=== PATIENT | female | born 1955 | race African-American/Black ===

== ENCOUNTER 2017-10-16 13:32 | Emergency (ER) | payer OTHER ==
[2017-10-16 13:39] VITALS: BP 156/80; PULSE 85; TEMP 98; BMI 36.6
--- NOTE | 2017-10-16 15:00 | PDOC ---
History of Present Illness - General Chief Complaint: Allergic Reaction Stated Complaint: SWOLLEN FACE Time Seen by Provider: 10/16/17 14:20 History Source: Patient Exam Limitations: No Limitations - History of Present Illness Initial Comments: 10/16/17 15:20 62yo woman with DM and glaucoma who presents with acute unilateral R sided facial swelling. Patient was at [facility] [place] she awoke this morning and noticed that the R side of her face, including her lips were swollen. She denies any associated pruritis, increased lacrimation, rhinorrhea, ear pain/discharge. Her taste is intact. She denies any known food allergies. She had a home cooked meal last night of salmon and chicken. She has not traveled recently. 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 No insect bites. Timing/Duration: 4-6 hours Associated Symptoms: reports: denies symptoms Past History - Travel Traveled outside of the country in the last 30 days: No Close contact w/someone who was outside of country & ill: No - Past Medical History Allergies/Adverse Reactions: Allergies Allergy/AdvReac Type Severity Reaction Status Date / Time Iodinated Contrast- Oral and Allergy Verified 10/16/17 13:34 IV Dye [Iodinated Contrast Media - IV Dye] Home Medications: Ambulatory Orders No Home Medications 0 dose .ROUTE UTDICT 06/30/13 Anemia: No Asthma: No Cancer: No Cardiac Disorders: No CVA: No COPD: No CHF: No Dementia: No Diabetes: Yes (niddm) GI Disorders: No Disorders: No HTN: No Hypercholesterolemia: No Liver Disease: No Seizures: No Thyroid Disease: Yes - Surgical History Abdominal Surgery: Yes (ectopic) Appendectomy: No Cardiac Surgery: No Cholecystectomy: No Lung Surgery: No Neurologic Surgery: No - Immunization History Immunization Up to Date: Yes - Suicide/Smoking/Psychosocial Hx Smoking History: Never smoked Have you smoked in the past 12 months: No Information on smoking cessation initiated: No Hx Alcohol Use: Yes (occasion) Drug/Substance Use Hx: No Substance Use Type: None Hx Substance Use Treatment: No Review of Systems - Review of Systems Able to Perform ROS?: Yes HEENTM: Yes: See HPI All Other Systems: Reviewed and Negative *Physical Exam - Vital Signs Last Vital Signs Temp Pulse Resp BP Pulse Ox 98.0 F 85 18 156/80 100 10/16/17 13:35 10/16/17 13:35 10/16/17 13:35 10/16/17 13:35 10/16/17 13:35 - Physical Exam General Appearance: Yes: Nourished, Appropriately Dressed HEENT: positive: EOMI, JL, Other (R side parotid tenderness) Neck: positive: Supple Respiratory/Chest: positive: Lungs Clear, Normal Breath Sounds Cardiovascular: positive: Regular Rhythm, Regular Rate 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 No focal deficits identified on neurological exam. VS stable with no reports of subjective fever or chills makes an infectious etiology less likely. Will discharge home with close follow- up with ENT to evaluate parotid. Provided patient with education on parotiditis. *DC/Admit/Observation/Transfer - Referrals Referrals: Pepito Ricketts MD [Primary Care Provider] - Jesus Welch MD [Staff Physician] - - Patient Instructions Additional Instructions: Please see Dr. Welch ([phone]) an Ear, Nose, and Throat specialist within 1 week to discuss your symptoms. You parotid gland is swollen. Please see the educational packet provided about this condition. Try sucking on hard sour or lemon-flavored hard candies, which may help alleviate your symptoms. Please return to the Emergency Department if your symptoms worsen, including changes in your vision or increased facial pain. - Post Discharge Activity
--- NOTE | 2017-10-16 16:17 | PDOC ---
Attending Attestation - Resident Resident Name: Noemy Garcia - ED Attending Attestation I have performed the following: I have examined & evaluated the patient, The case was reviewed & discussed with the resident, I agree w/resident's findings & plan, Exceptions are as noted - Medical Decision Making 10/16/17 16:20 62 years old presents with 1 day history of right sided right cheek swelling. No eye year nose or throat pain. On palpation the parotid gland is prominent on that side. Otherwise no acute findings normal neurologic examination Patient will follow-up with ENT in 1-2 days she'll return to emergency department for any severe worsening symptoms or other concerns. Findings, the need for follow-up and strict return instructions discussed with patient.
== END 2017-10-16 16:16 | disposition home or self-care (01) ==
LOC: JER 13:32
DX: K11.20 Sialoadenitis, unspecified (principal)
CPT/HCPCS: 99282-25

== ENCOUNTER 2019-05-28 17:11 | Emergency (ER) | payer OTHER ==
[2019-05-28 17:55] VITALS: BP 155/84; PULSE 69; TEMP 98.6; BMI 36.3
== END 2019-05-28 18:52 | disposition home or self-care (01) ==
LOC: FER 17:11
DX: M75.82 Other shoulder lesions, left shoulder (principal); W18.39XA Other fall on same level, initial encounter; Y93.89 Activity, other specified; Y92.89 Other specified places as the place of occurrence of the external cause; Y99.0 Civilian activity done for income or pay; E11.9 Type 2 diabetes mellitus without complications; E07.9 Disorder of thyroid, unspecified
CPT/HCPCS: 73030-TC-LT-FY; 99283-25

== ENCOUNTER → 2019-10-07 | Day surgery (SDC) | payer OTHER ==
--- NOTE | 2019-10-09 16:42 | PATH ---
Cytology Non-Gynecological Report Patient Name: XAVIER MATAMOROS [facility]. Rec. #: [id number] /Age/Gender: 1955 (Age: 64) / F Account: [id number] Location: RADIOLOGY INTER Taken: 10/07/2019 Received: 10/07/2019 Reported: 10/09/2019 Physicians: Fady Waterman M.D. Specimen(s) Received RIGHT LOBE THYROID FNA Clinical History Thyroid nodule Final Diagnosis THYROID, RIGHT, FINE NEEDLE ASPIRATION: SATISFACTORY FOR EVALUATION BETHES[place] CLASS II: BENIGN SMALL FOLLICULAR CELLS, MACROPHAGES, AND COLLOID PRESENT, CONSISTENT WITH A BENIGN FOLLICULAR NODULE. Electronically Signed Yomi Mathew M.D. Gross Description Received are eight direct smears, four of which are air-dried and Diff-Quik stained, and four of which are alcohol fixed and Pap stained. Also received is 20 ml of bloody formalin from which one cellblock is prepared.
== END | disposition home or self-care (01) ==
LOC: JRADIR 08:51
PROVIDERS: ATTEND Internal Medicine Endocrinology, Diabetes & Metabolism
PROC: 0G9H3ZX Drainage of Right Thyroid Gland Lobe, Percutaneous Approach, Diagnostic (ICD-10-PCS; principal; 2019-10-07)
DX: E04.1 Nontoxic single thyroid nodule (principal)
CPT/HCPCS: 76942